=== PATIENT | male | born 1975 | race Caucasian/White ===

== ENCOUNTER → 2017-07-23 | Outpatient (CLI) | payer OTHER ==
[2017-07-23 14:55] LABS: DAYS OF ABSTINENCE 5; METHOD OF COLLECTION MASTERBATION; SEMEN COLOR GRAY OR GRAY-WHITE (GRY/GRYWHTE); SEMEN TIME OF COLLECTION 1250; SEMEN VOLUME 2.8 ML (>1.5); TYPE OF SPECIMEN CONTAINER STERILE
[2017-07-23 14:56] LABS: SEMEN LIQUEFACTION COMPLETE; SPERM VIABILITY STAIN NOT INDICATED % (>58%)
== END | disposition home or self-care (01) ==
LOC: C.LAB 13:25
PROVIDERS: ATTEND Family Medicine
DX: N46.9 Male infertility, unspecified (principal)